=== PATIENT | male | born 1985 | race Hispanic/Latino ===

== ENCOUNTER → 2021-07-09 | Outpatient (CLI) | payer OTHER | LOC: VACCPMC 09:00 | DX: Z23 Encounter for immunization (principal); Z20.822 Contact with and (suspected) exposure to COVID-19 ==

== ENCOUNTER → 2021-08-06 | Outpatient (CLI) | payer OTHER | LOC: VACCPMC 13:54 | DX: Z23 Encounter for immunization (principal); Z20.822 Contact with and (suspected) exposure to COVID-19 ==

== ENCOUNTER 2021-11-12 23:05 | Emergency (ER) | payer OTHER ==
[~2021-11-12] VITALS: Ht 170.2 cm; Wt 81.6 kg
[2021-11-13] MEDS ORDERED: KETOROLAC TROMETHAMINE 60 MG/2 ML VIAL ONE (00:43)
[2021-11-13] MEDS ORDERED: HYDROCODONE/APAP 10MG-325MG TAB ONE (00:44)
[2021-11-13] MEDS ORDERED: KETOROLAC TROMETHAMINE 60 MG/2 ML VIAL IM ONE (00:45)
[2021-11-13] MEDS ORDERED: HYDROCODONE/APAP 10MG-325MG TAB PO ONE (00:45)
== END 2021-11-13 02:10 | disposition home or self-care (01) ==
LOC: ER 23:56
DX: S46.912A Strain of unspecified muscle, fascia and tendon at shoulder and upper arm level, left arm, initial encounter (principal)
CPT/HCPCS: 73030; 99283; J1885